=== PATIENT | male | born 1980 | race Caucasian/White ===

== ENCOUNTER 2022-10-27 12:54 | Emergency (ER) | payer OTHER, SELFPAY ==
--- NOTE | ~2022-10-27 | CT_ITS ---
EXAMINATION: CT lumbar spine wo con DATE: 10/27/2022 13:42 INDICATION: Low back pain and right sided radiculopathy TECHNIQUE: Computed tomography (CT) of the lumbar spine was performed without intravenous contrast. A utomated exposure control and iterative reconstruction technique were employed. The dose-length produ ct was 447.80 mGy-cm. COMPARISON: None FINDINGS: Bone alignment is normal. Vertebral body heights are normal. No fracture. Mild disc height loss at L3 -L4 and L4-L5. There are disc bulges resulting in mild central canal stenosis at 2 mm nonobstructing stone at the upper pole of the left kidney. Minimal osteoarthritis at the bilateral sacral iliac join ts. Both of these levels. Small central disc protrusion at L5-S1 without central canal stenosis. The following disc levels are specifically discussed: T12-L1: The disc does not extend beyond the endplate margin. There is mild bilateral facet joint oste oarthritis. There is no neural foraminal stenosis. There is no central canal stenosis. L1-L2: Disc is mildly bulging. There is mild bilateral facet joint osteoarthritis. There is no neural foraminal stenosis. There is minimal central canal stenosis. L2-L3: The disc does not extend beyond the endplate margin. There is mild bilateral facet joint osteo arthritis. There is no neural foraminal stenosis. There is no central canal stenosis. L3-L4: Disc is bulging. There is mild bilateral facet joint osteoarthritis. There is no neural forami nal stenosis. There is mild central canal stenosis. L4-L5: Disc is bulging. There is no facet joint osteoarthritis. There is no neural foraminal stenosis . There is mild central canal stenosis. L5-S1: Small central disc protrusion. There is mild right and minimal left facet joint osteoarthritis . There is no neural foraminal stenosis. There is no central canal stenosis. IMPRESSION: 1. Minimal to mild lumbar spondylosis. 2. 2 mm left renal stone. Reviewed, dictated and finalized at location A.
[2022-10-27 12:56] VITALS: BP 116/75; PULSE 82; RESP 18; TEMP 36.4; O2SAT 99
--- NOTE | 2022-10-27 13:17 | ED.GENADULT ---
[facility] - General Adult General Chief complaint: Back Pain/Injury Stated complaint: back pain Time Seen by Provider: 10/27/22 13:01 Source: patient Mode of arrival: wheelchair Limitations: no limitations History of Present Illness HPI narrative: This is a 42-year-old male who presents to the ED with chief complaints of low back pain following injury that occurred 2 nights ago. Patient states that he was bending down to roll picker his baby when he felt an immediate twinge in his lower back. States it is on the right side of the low back. He reports difficulty with walking due to pain. States he took 400 mg of ibuprofen earlier today with minimal relief. He also is taking gabapentin that he has prescribed for long history of nerve issues. Denies bowel or bladder dysfunction, saddle anesthesia, fevers, chills, numbness, weakness. Denies any history of diabetes or immunocompromising conditions. Denies IV drug use. Related Data Allergies Allergy/AdvReac Type Severity Reaction Status Date / Time midazolam Allergy Unknown Unknown Verified 10/27/22 13:06 Penicillins Allergy Unknown Anaphylactic Verified 10/27/22 13:06 Shock baclofen AdvReac Vomiting Verified 10/27/22 13:07 Review of Systems Review of Systems: All systems as dictated in [facility] Past Medical History Medical History (Updated 10/27/22 @ 14:08 by Noah Kidd PA-C) ASD (atrial septal defect) Surgical History Surgical History (Updated 01/23/19 @ 01:02 by Carlos Gallardo MD) H/O atrial septal defect repair Exam Narrative: GENERAL: Well-appearing, well-nourished, and in no acute distress. HEAD: Normocephalic, atraumatic. EYES: PERRLA and EOMI. ENT: Nares clear, no rhinorrhea or epistaxis. Mucous membranes moist. Oropharynx without tonsillar hypertrophy exudate or other lesions. NECK: Supple. No adenopathy or masses. CHEST: No respiratory distress. Clear to auscultation. No wheezes rales or rhonchi HEART: Regular rate and rhythm. No murmur heard. Normal peripheral pulses. ABDOMEN: Soft, nontender, nondistended, normal active bowel sounds. MSK: Mild right paraspinal lumbar tenderness. No midline spinal tenderness throughout the CT LS spine. No bony deformity or step-off. SKIN: Warm, dry, no rash. NEURO: Alert and oriented x3. No focal deficits. 5 out of 5 strength and sensation throughout the upper and lower extremities. PSYCH: Normal mood and affect. Course Vital Signs Vital signs: Vital Signs Temperature 97.6 F 10/27/22 12:56 Pulse Rate 82 10/27/22 12:56 Respiratory Rate 18 10/27/22 12:56 Blood Pressure 116/75 10/27/22 12:56 Pulse Oximetry 99 10/27/22 12:56 Oxygen Delivery Room Air 10/27/22 12:56 Temperature 97.6 F 10/27/22 12:56 Pulse Rate 82 10/27/22 12:56 Respiratory Rate 18 10/27/22 12:56 Blood Pressure 116/75 10/27/22 12:56 Pulse Oximetry 99 10/27/22 12:56 Oxygen Delivery Room Air 10/27/22 12:56 Medical Decision Making MDM Narrative Medical decision making narrative: This is a 42-year-old male who presents to the ED with chief complaint of low back pain following injury 2 days ago. Vitals are normal. No red flag back signs or symptoms. He does have a little bit of radicular pain so CT scan was ordered. CT lumbar without contrast shows degeneration at L3-L5 and small central disc protrusion at L5-S1. No severe central canal stenosis. Symptoms were well controlled here in the ED with Toradol, hydrocodone, Tylenol. He will be discharged in stable condition. Encouraged to follow-up with PCP. Return precautions given supportive measures discussed. He is understanding and agreeable with plan for discharge and follow-up. Vital Signs Vital Signs: Vital Signs Temperature 97.6 F 10/27/22 12:56 Pulse Rate 82 10/27/22 12:56 Respiratory Rate 18 10/27/22 12:56 Blood Pressure 116/75 10/27/22 12:56 Pulse Oximetry 99 10/27/22 12:56 Oxygen Delivery Room Air
[2022-10-27] MEDS: KETOROLAC 30 MG/ML VIAL (*BKC) IM (13:24)
[2022-10-27] MEDS: HYDROcodone/acetaminophen (*CRX) 5-325 MG TABLET 1 TAB PO (13:25)
[2022-10-27] MEDS: ACETAMINOPHEN 325 MG TABLET 650 MG PO (13:25)
== END 2022-10-27 14:30 | disposition home or self-care (01) ==
PROVIDERS: Emergency Provider Physician Assistant
DX: M51.36 Other intervertebral disc degeneration, lumbar region (principal); Z87.74 Personal history of (corrected) congenital malformations of heart and circulatory system
CPT/HCPCS: 72131; 96372; 99284; A9270; J1885

== ENCOUNTER 2023-04-25 10:56 | Emergency (ER) | payer OTHER, SELFPAY ==
--- NOTE | ~2023-04-25 | CT_ITS ---
EXAMINATION: CT abdomen pelvis w con DATE: 04/25/2023 17:35 INDICATION: Right flank pain TECHNIQUE: Computed tomography (CT) of the abdomen and pelvis was performed with 100 mL Omnipaque-350 intravenous contrast. Automated exposure control and iterative reconstruction technique were employe d. The dose-length product was 327.39 mGy-cm. COMPARISON: None FINDINGS: Minimal discoid atelectasis in the right lower lobe. Visualized inferior heart is normal. No pericard ial or pleural effusion. Liver, gallbladder, spleen, pancreas, bilateral adrenal glands and kidneys a re normal. Bowels are unremarkable with no wall thickening or obstruction. The appendix is not visual ized. No pericecal inflammatory change to suggest acute appendicitis. Bladder is normal. Prostatomega ly measuring 4.2 x 3.1 cm. Minimal scattered degenerative skeletal changes. IMPRESSION: 1. No acute intra-abdominal/pelvic process. Reviewed, dictated and finalized at location A. OBIOLOGY DIRECTOR
[2023-04-25 11:57] VITALS: BP 134/78; PULSE 81; RESP 18; TEMP 36.7; O2SAT 98
[2023-04-25 16:09] VITALS: BP 121/85; PULSE 57; PULSE 59; RESP 16; O2SAT 97
--- NOTE | 2023-04-25 16:17 | ED.GENADULT ---
HPI - General Adult General Chief complaint: Unspecified Stated complaint: right side pain, swelling since Friday Time Seen by Provider: 04/25/23 16:00 History of Present Illness HPI narrative: Patient is a 43-year-old male with history of prior appendectomy when he was 12 years old, status post open heart surgery for ASD here with right-sided flank pain. He states that for the last 4 days he has had some pain over his right flank and lateral abdomen near his hip bone. He states he has been dealing with it okay at home with [id number] medications. Notes that it persisted today and he sneezed and it seemed to get much worse. He notes that it feels like a bulge to that area and tender to touch. No skin changes. No urinary symptoms, no hematuria. Normal bowel movements, last BM today. No fever or chills. Related Data Allergies Allergy/AdvReac Type Severity Reaction Status Date / Time midazolam Allergy Unknown Unknown Verified 10/27/22 13:06 Penicillins Allergy Unknown Anaphylactic Verified 10/27/22 13:06 Shock baclofen AdvReac Vomiting Verified 10/27/22 13:07 Review of Systems Review of Systems: All systems reviewed & are unremarkable except as noted in HPI and below PMFSH Past Medical History Medical History (Updated 04/25/23 @ 19:01 by Alta Lynch MD) ASD (atrial septal defect) Surgical History Surgical History (Updated 01/23/19 @ 01:02 by Carlos Gallardo MD) H/O atrial septal defect repair Exam Narrative: GENERAL: Well-appearing, well-nourished, and in no acute distress. HEAD: Normocephalic, atraumatic. EYES: PERRLA and EOMI. ENT: Nares clear. Mucous membranes moist. NECK: Supple. CHEST: Clear to auscultation. No respiratory distress. HEART: Regular rate and rhythm. Normal peripheral pulses. ABDOMEN: Soft, non distended. Well healed linear surgical scar in the RLQ consistent with prior open appendectomy. Tenderness to the lateral right abdomen just above the iliac crest. No overlying skin changes. No obvious hernia palpated. EXTREMITIES: Normal range of motion. No edema. SKIN: Warm, dry, no rash. NEURO: No focal deficits. Alert and oriented x3. PSYCH: Normal mood and affect. Course Course Emergency Course: Chart review performed. Patient here with flank pain since Friday. Triage vitals normal. Prior ED visits here were for back pain and eye infection. Patient seen evaluated, nontoxic appearing. He has some isolated right lateral abdominal tenderness near the site of his previous appendectomy. No obvious overlying skin changes. Basic lab work ordered, differentials include hernia, muscle strain, nephrolithiasis, UTI. CT abdomen pelvis ordered along with pain medication. Lab work and imaging performed. CBC within normal limits. Electrolytes and renal function stable. Normal LFTs. Lactic 0.9. UA negative for infection or blood. Awaiting imaging. CT negative. Patient re-evaluated, has had some relief with medications. The results of pertinent diagnostic studies and exam findings were discussed. The patient?s provisional diagnosis and plan of care were discussed with the patient and present family. The patient and/or present family expressed understanding of the diagnosis and plan. The nurse was instructed to provide written instructions and appropriate follow-up information. The patient understands their need and responsibility to obtain additional follow-up as instructed. The risks of medications administered and prescribed were discussed with the patient and family present. Vital Signs Vital signs: Vital Signs Temperature 98.0 F 04/25/23 11:57 Pulse Rate 81 04/25/23 11:57 Respiratory Rate 18 04/25/23 11:57 Blood Pressure 134/78 04/25/23 11:57 Pulse Oximetry 98 04/25/23 11:57 Oxygen Delivery Room Air 04/25/23 11:57 Temperature 98.0 F 04/25/23 11:57 Pulse Rate 59 L 04/25/23 16:09 Respiratory Rate 16 04/25/23 16:09 Blood Pressure 121/85 04/25/23
[2023-04-25 17:03] LABS: Basophils Percent Auto 0.3 % (0.2-1.2); Eosinophils Absolute Auto 0.2 K/mm3 (0-0.3); Eosinophils Percent Auto 2.4 % (0-4.4); Hematocrit 48.9 % (42.0-52.0); Hemoglobin 16.6 g/dL (14.0-18.0); Immature Granulocyte Absolute 0.03 K/mm3 (0.00-0.031); Immature Granulocyte Percent A 0.3 % (0-0.5); Lymphocytes Absolute Auto 2.91 K/mm3 (0.9-3.2); Lymphocytes Percent Auto 33.5 % (18.3-44.2); Mean Corpuscular HGB Conc 33.9 g/dl (32-36); Mean Corpuscular Hemoglobin 29.5 pg (26-34); Mean Corpuscular Volume 86.9 fl (80-100); Mean Platelet Volume 10.2 fl (7.4-10.4); Monocytes Absolute Auto 0.6 K/mm3 (0.1-0.6); Monocytes Percent Auto 6.3 % (2.6-8.5); Neutrophils Percent Auto 57.2 % (45.5-73.1); Platelet Count Result 281 k/mm3 (150-375); Red Blood Count 5.63 M/mm3 (4.6-6.20); Red Cell Distribution Width 13.2 % (11.5-14.5); White Blood Count 8.7 K/mm3 (4.5-10.0)
[2023-04-25] MEDS: ONDANSETRON INJ 4 MG/2 ML VIAL IV PUSH (17:04)
[2023-04-25] MEDS: MORPHINE SULFATE (*CRX) 4 MG/ML INJ IV PUSH (17:04)
[2023-04-25 17:07] LABS: Appearance Urine Clear (Clear); Bilirubin Urine Negative (Negative); Blood Urine Negative (Negative); Color Urine Yellow (Yellow); Glucose Urine UA Negative (Negative); Ketones Urine Negative (Negative); Leukocyte Esterase Ur Negative LEU/UL (Negative); Nitrate Urine Negative (Negative); Protein Urine Negative (Negative); Urobilinogen Urine 0.2 mg/dL (<2.0)
[2023-04-25 17:12] LABS: Add Urine Microscopic? NO
[2023-04-25 17:15] LABS: Lactic Acid Reflex 0.9 mmol/L (0.7-2.0)
[2023-04-25 17:17] LABS: Alanine Aminotransferase 27 U/L (6-50); Albumin Level 4.5 g/dL (3.5-5.1); Alkaline Phosphatase 69 U/L (38-126); Anion Gap 9 mmol/L (8-16); Aspartate Amino Transferase 27 U/L (17-59); Bilirubin,Total 0.8 mg/dL (0.2-1.3); Blood Urea Nitrogen 17 mg/dL (9-20); Calcium 10.1 mg/dL (8.4-10.2); Carbon Dioxide 24 mmol/L (22-30); Chloride 103 mmol/L (98-107); Estimated CRCL calculation 92 ml/min; Estimated Glomerular Filt Rate > 60; Glucose 87 mg/dL (65-110); Lipase 70 U/L (23-300); Potassium 4.5 mmol/L (3.4-5.0); Sodium 136 mmol/L (137-145)
[2023-04-25 17:18] LABS: Prothrombin Time 13.1 Seconds (11.1-14.7)
[2023-04-25 17:19] LABS: Partial Thromboplastin Time 34.7 SECONDS (22.3-36.8)
[2023-04-25] MEDS: CYCLOBENZAPRINE HCL 10 MG TABLET PO (18:15)
[2023-04-25 18:49] VITALS: BP 106/75; PULSE 56; RESP 13; O2SAT 98
== END 2023-04-25 19:11 | disposition home or self-care (01) ==
PROVIDERS: Emergency Provider Student in an Organized Health Care Education/Training Program
DX: R10.9 Unspecified abdominal pain (principal); Z87.74 Personal history of (corrected) congenital malformations of heart and circulatory system
CPT/HCPCS: 36415; 74177; 80053; 81003; 83605; 83690; 85025; 85610; 85730; 96374; 96375; 99284; A9270; J2270; J2405; Q9967

== ENCOUNTER 2024-04-03 13:43 | Emergency (ER) | payer OTHER, SELFPAY ==
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
[2024-04-03 14:34] VITALS: BP 106/76; PULSE 67; RESP 20; TEMP 36.7; O2SAT 98
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
[2024-04-03 19:58] VITALS: BP 121/79; PULSE 72; RESP 97; TEMP 36.6; O2SAT 97
== END 2024-04-03 20:00 | disposition home or self-care (01) ==
LOC: ANHED 19:55
PROVIDERS: Emergency Provider Physician Assistant
DX: S16.1XXA Strain of muscle, fascia and tendon at neck level, initial encounter (principal); V49.40XA Driver injured in collision with unspecified motor vehicles in traffic accident, initial encounter
CPT/HCPCS: 70450; 72125; 73030; 99284